=== PATIENT | female | born 1985 | race Caucasian/White ===

== ENCOUNTER → 2021-05-14 | Outpatient (CLI) | payer OTHER ==
[2014-08-20 22:17] VITALS: BP 135/95
[~2021-05-14] MED LIST: birth control
--- NOTE | 2021-05-14 15:41 | KCIC ---
EXAM: 3 views of the left wrist DATE: 05/14/2021 12:40 PM INDICATION: Reason: LEFT WRIST PAIN THUMB SIDE S/P FALL APPROX 2 WEEKS AGO, HX OF PRIOR FX / Spl. Ins tructions: / History: COMPARISON: No Prior FINDINGS: No acute fracture or dislocation. Joint spaces are preserved without significant degenerative/prolife rative change. No significant soft tissue swelling. IMPRESSION: No acute fracture or dislocation. Electronically signed by: Pito Gee MD (05/14/2021 3:39 PM) [id number]
== END ==
LOC: KCIC 12:33
PROVIDERS: ATTEND Internal Medicine
DX: M25.632 Stiffness of left wrist, not elsewhere classified (principal); M25.532 Pain in left wrist; W19.XXXA Unspecified fall, initial encounter
CPT/HCPCS: 73110